=== PATIENT | male | born 1995 | race Caucasian/White ===

== ENCOUNTER 2025-07-05 08:25 | Emergency (ER) | payer SELFPAY ==
[~2025-07-05] VITALS: Ht 170.2 cm; Wt 68.0 kg
[2025-07-05] MEDS ORDERED: ONDANSETRON HCL/PF 4 MG/2 ML VIAL ONE ×2 (08:40→09:56)
[2025-07-05] MEDS: IV LR 1000 ML 1,000 ML IV ONE (08:45)
[2025-07-05] MEDS: ONDANSETRON HCL/PF 4 MG/2 ML VIAL IVP ONE (08:45)
[2025-07-05] MEDS: FAMOTIDINE/PF INJ 20 MG/2 ML VIAL IV ONE (08:45)
[2025-07-05 08:50] LABS: PLATELET COUNT (AUTO) 387 K/uL (150-450); RED BLOOD CELL COUNT(AUTO) 5.28 MIL/uL (4.5-6.0); RED CELL DISTRIBUTION WIDTH 12.2 % (11.5-15.0); WHITE BLOOD COUNT (AUTO) 11.7 K/uL (4.3-11.0)
[2025-07-05 09:07] LABS: ASPARTATE AMINOTRANSFERASE 25.0 U/L (15-37); CALCIUM, SERUM 9.4 mg/dL (8.5-10.1); CREATININE 1.5 mg/dL (0.6-1.3); SODIUM SERUM 140.0 mmol/L (136-145); TOTAL PROTEIN, SERUM 8.5 g/dL (6.4-8.2); UREA NITROGEN, BLOOD 17.0 mg/dL (7-18)
[2025-07-05] MEDS: ONDANSETRON HCL/PF 4 MG/2 ML VIAL IV ONE (09:58)
[2025-07-05] MEDS ORDERED: IV LR 1000 ML 1,000 ML IV ONE (10:00)
[2025-07-05 10:09] LABS: APPEARANCE,URINE CLEAR (CLEAR); BLOOD, URINE TRACE-INTA Ery/uL (NEGATIVE); LEUKOCYTE ESTERASE ,URINE NEGATIVE (NEGATIVE); NITRITE, URINE NEGATIVE (NEGATIVE); UGLUCOSE NEGATIVE (NEGATIVE)
[2025-07-05 10:13] LABS: ADD URINE CULTURE NO; SQUAMOUS EPITHELIAL CELL,UR Few /HPF (None Seen)
[2025-07-05 10:21] LABS: BARBITURATE, URINE NEGATIVE (NEGATIVE); BENZODIAZEPINE, URINE NEGATIVE (NEGATIVE); CANNABINOID, URINE NEGATIVE (NEGATIVE); OPIATE, URINE NEGATIVE (NEGATIVE)
[2025-07-05 10:22] LABS: AMPHETAMINE, URINE POSITIVE (NEGATIVE); COCCAINE, URINE POSITIVE (NEGATIVE)
[2025-07-05] MEDS ORDERED: ONDA4TAB11 PO (10:26)
[2025-07-05 10:48] VITALS: BP 142/87; TEMP 97.9; O2SAT 99
== END 2025-07-05 10:48 | disposition home or self-care (01) ==
LOC: ER 08:34
DX: T50.911A Poisoning by multiple unspecified drugs, medicaments and biological substances, accidental (unintentional), initial encounter (principal); E86.0 Dehydration; R11.2 Nausea with vomiting, unspecified; Y92.89 Other specified places as the place of occurrence of the external cause
CPT/HCPCS: 99285; 96374; 96361; 96375; 93005; 71045; 96376; 85025; 80048; 83690; 80076; 81001; 36415; 80320; 80307; J2405 ×2; J7120 ×3; J7030; G0480